=== PATIENT | male | born 1980 | race Asian ===

== ENCOUNTER 2017-02-06 10:11 | Emergency (ER) | payer OTHER ==
--- NOTE | 2017-02-06 10:25 | EDPHY ---
ED Progress Note Narrative: The patient was given a medical screening exam and does not want to have care in the emergency department secondary to cough concerns. The patient is competent to seek care at an urgent care facility. He has no evidence of life or limb threatening emergency.
[2017-02-06 10:27] VITALS: BP 117/82; PULSE 73; RESP 16; TEMP 97.9; O2SAT 94
== END 2017-02-06 10:30 | disposition left against medical advice (07) ==
LOC: CED 10:11
DX: Z53.21 Procedure and treatment not carried out due to patient leaving prior to being seen by health care provider (principal)